=== PATIENT | female | born 1960 | race African-American/Black ===

== ENCOUNTER 2024-07-12 10:04 | Emergency (ER) | payer OTHER ==
[2024-07-12 10:37] VITALS: BP 140/97; PULSE 88; RESP 16; TEMP 98.8; BMI 34.3
[2024-07-12] MEDS ORDERED: ACETAMINOPHEN 325 MG TABLET (FP) ONE (11:21)
[2024-07-12] MEDS: ACETAMINOPHEN 325 MG TABLET (FP) PO ONE (11:25)
[2024-07-12 11:29] LABS: HEMATOCRIT 38.7 % (32.4-45.2); HEMOGLOBIN 12.9 G/dL (10.7-15.3); MCH 28.6 pg (25.7-33.7); MCHC 33.2 g/dl (32.0-36.0); MEAN PLT VOLUME 8.8 fl (7.5-11.1); PLATELET COUNT 323.3 10^3/uL (134-434); RDW 14.4 % (11.6-15.6); WHITE BLOOD COUNT 7.8 10^3/uL (4.0-10.8)
[2024-07-12 11:43] LABS: PLATELET ESTIMATE ADEQUATE
[2024-07-12 11:44] LABS: ALBUMIN 4.1 g/dl (3.4-5.0); BILIRUBIN,TOTAL 0.8 mg/dl (0.2-1); CALCIUM 9.5 mg/dl (8.5-10.1); CREATININE 0.8 mg/dl (0.6-1.3); POTASSIUM 3.2 mmol/L (3.5-5.1); TOT PROT 6.6 g/dl (6.4-8.2)
== END 2024-07-12 11:30 | disposition home or self-care (01) ==
LOC: FER 10:04
DX: K42.9 Umbilical hernia without obstruction or gangrene (principal); D35.00 Benign neoplasm of unspecified adrenal gland; D41.00 Neoplasm of uncertain behavior of unspecified kidney; R10.33 Periumbilical pain; N64.4 Mastodynia
CPT/HCPCS: 36415; 74177-TC; 80053; 83605; 85027; 99285-25; Q9967